=== PATIENT | male | born 1990 | race Caucasian/White ===

== ENCOUNTER 2016-02-15 15:31 | Emergency (ER) | payer BC ==
[2016-02-15 16:11] VITALS: TEMP 98.2; BMI 23.0
[2016-02-15 17:01] VITALS: BP 145/89; PULSE 73
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
== END 2016-02-15 17:57 | disposition home or self-care (01) ==
LOC: EDMC 15:31
DX: S20.212A Contusion of left front wall of thorax, initial encounter (principal); V86.99XA Unspecified occupant of other special all-terrain or other off-road motor vehicle injured in nontraffic accident, initial encounter; Y93.9 Activity, unspecified
CPT/HCPCS: 99283